=== PATIENT | male | born 1945 | race Caucasian/White ===

== ENCOUNTER 2018-01-20 08:30 | Inpatient (IN) | payer OTHER ==
[~2018-01-20] VITALS: Ht 185.4 cm; Wt 86.6 kg
[2018-01-20] MEDS ORDERED: AVAPRO75 MG (09:21)
[2018-01-28] MEDS ORDERED: DOCUSATE SODIU100 MG PO (10:18)
[2018-01-28] MEDS ORDERED: GABAPENTIN800 MG PO (10:18)
[2018-01-28] MEDS ORDERED: AMOX-CLAV 875-1 EACH PO (10:20)
[2018-01-28] MEDS ORDERED: PERCOCET 5-3251 EACH PO (10:21)
[2018-01-28] MEDS ORDERED: CLONAZEPAM1 MG PO (10:21)
== END 2018-01-28 19:00 | DRG 455 ==
LOC: O/R 01-27 05:20 → PED 01-28 13:20
PROVIDERS: Orthopaedic Surgery Orthopaedic Surgery of the Spine
PROC: 0SG1071 Fusion of 2 or more Lumbar Vertebral Joints with Autologous Tissue Substitute, Posterior Approach, Posterior Column, Open Approach (ICD-10-PCS; 2018-01-27)
PROC: 0SG10AJ Fusion of 2 or more Lumbar Vertebral Joints with Interbody Fusion Device, Posterior Approach, Anterior Column, Open Approach (ICD-10-PCS; 2018-01-27)
PROC: 0ST20ZZ Resection of Lumbar Vertebral Disc, Open Approach (ICD-10-PCS; 2018-01-27)
PROC: 07DS3ZZ Extraction of Vertebral Bone Marrow, Percutaneous Approach (ICD-10-PCS; 2018-01-27)
PROC: 0SG10A0 Fusion of 2 or more Lumbar Vertebral Joints with Interbody Fusion Device, Anterior Approach, Anterior Column, Open Approach (ICD-10-PCS; principal; 2018-01-27 16:45)
DX: M47.26 Other spondylosis with radiculopathy, lumbar region (principal); M51.16 Intervertebral disc disorders with radiculopathy, lumbar region; M48.061 Spinal stenosis, lumbar region without neurogenic claudication; I10 Essential (primary) hypertension